=== PATIENT | female | born 1970 | race Caucasian/White ===

== ENCOUNTER 2023-05-16 16:16 | Emergency (ER) | payer MEDICARE, SELFPAY ==
[2023-05-16 16:17] VITALS: BP 179/123; PULSE 101; RESP 16; TEMP 36.7; O2SAT 98; BMI 33.2
--- NOTE | 2023-05-16 16:18 | XRR_ITS ---
PROCEDURE INFORMATION: Exam: XR Chest Exam date and time: 05/16/2023 4:44 PM Age: 52 years old Clinical indication: Pain; Angina pectoris; Additional info: Cp TECHNIQUE: Imaging protocol: Radiologic exam of the chest. Views: 1 view. COMPARISON: No relevant prior studies available. FINDINGS: Lungs: Unremarkable. No consolidation. Pleural spaces: Unremarkable. No pleural effusion. No pneumothorax. Heart/Mediastinum: Unremarkable. No cardiomegaly. Bones/joints: No acute findings. A cervicothoracic metallic plate is seen. XR/XR chest 1V portable [id number] IMPRESSION: No acute findings.
--- NOTE | 2023-05-16 16:19 | ECG_ITS ---
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 Measurements Intervals [place] Rate: 105 P: 53 GA: 172 QRS: 19 QRSD: 85 T: 10 QT: 342 QTc: 452 Interpretive Statements SINUS TACHYCARDIA SEPTAL MYOCARDIAL INFARCTION , PROBABLY OLD [40+ ms Q WAVE IN V1/V2] No previous ECG available for comparison Electronically Signed On 05-17-2023 8:45:41 KITCHEN AND BATH DESIGNER by Kin Burns M.D. [id number] f
--- NOTE | 2023-05-16 16:38 | W.ED.CHESTPA ---
HPI - Chest Pain General: Chief Complaint: Chest Pain Stated Complaint: chest pain Time Seen by Provider: 05/16/23 16:22 Source: patient Mode of arrival: ambulatory Limitations: no limitations History of Present Illness: 52-year-old female states she has been having chest pain started this afternoon states that sharp pain in the center of her chest she took nitro and had no improvement. She denies any fevers nausea. She denies any shortness of breath she denies any worsening proving factors does have a history of heart disease. Associated symptoms: Deny abdominal pain, dyspnea, fever(s), nausea or vomiting Review of Systems Const: Denies: fever(s), chills, body aches or change in appetite Eyes: Denies: blurry vision or eye discomfort ENMT: Denies: throat pain or dental pain Card: Reports: chest pain Resp: Denies: dyspnea GI: Denies: abdominal pain, nausea, vomiting or diarrhea Musc: Denies: neck pain or back pain Skin/Breast: Denies: rash Neuro: Denies: headache(s) Physical Exam Const: COMMON NORMALS: no acute distress, patient oriented x3 and healthy appearing HENMT: COMMON NORMALS: normocephalic and atraumatic HEAD & SCALP: normocephalic and atraumatic Eye: COMMON NORMALS: Equal, round and reactive pupils present and EOMs intact bilaterally PUPIL: Yes Equal, round and reactive pupils present Neck/C-Spine: COMMON NORMALS: full ROM and supple Chest: COMMONS NORMALS: normal inspection of the chest and normal palpation of entire chest wall Resp: COMMON NORMALS: normal respiratory effort, No retractions, No use of accessory muscles and clear to auscultation bilaterally AUSCULTATION: clear to auscultation bilaterally Cardio: COMMON NORMALS: regular rhythm and No murmurs present (Cardio) RATE: tachycardic RHYTHM: regular rhythm GI: COMMON NORMALS: Normal to inspection, nondistended, normoactive bowel sounds present, Soft to palpation, non-tender and no masses PALPATION: Yes Soft to palpation Extremity: COMMON NORMALS: normal to inspection and full ROM Neuro: COMMON NORMALS: patient oriented x3, moves all extremities and no focal motor deficits Psych: COMMON NORMALS: mental status grossly normal, Normal thought process present and cooperative THOUGHT PROCESS: Normal thought process present Skin: COMMON NORMALS: no rashes or lesions noted and no wounds GENERAL SKIN EXAM: no rashes or lesions noted Course Vital Signs: Vital signs: Vital Signs Temperature 98.1 F 05/16/23 16:17 Pulse Rate 95 05/16/23 20:25 Respiratory Rate 16 05/16/23 16:17 Blood Pressure 172/116 05/16/23 20:25 Pulse Oximetry 99 05/16/23 20:25 Oxygen Delivery Me thod Room Air 05/16/23 20:25 MDM - Chest Pain Medical Decision Making Patient presents here with chest pain is atypical in nature her D-dimer is negative she has no signs of PE or dissection troponins here are negative as well no signs of acute coronary syndrome she is stable for discharge she is to follow-up with her hadoop architect she is return if worsening she understands agrees to plan. Medical Records I reviewed the patient's medical records. Lab Data I reviewed the patient's lab results. 05/16/23 18:06 05/16/23 18:06 Radiology Impressions Chest X-Ray 05/16/23 16:18 IMPRESSION: No acute findings. Laboratory Results WBC 10.02 10^3/uL (3.29-11.43) 05/16/23 18:06 Corrected WBC Cancelled 05/16/23 17:05 RBC 4.97 10^6/uL (3.85-5.65) 05/16/23 18:06 Hgb 12.90 g/dL (11.27-16.99) 05/16/23 18:06 Hct 40.6 % (36-47) 05/16/23 18:06 MCV 81.7 fl (85-98) L 05/16/23 18:06 MCH 26.0 pg (27-33) L 05/16/23 18:06 MCHC 31.8 g/dL (30-55) 05/16/23 18:06 RDW 13.8 % (12.1-15.1) 05/16/23 18:06 Plt Count 269 10^3/cmm (157-399) 05/16/23 18:06 MPV 10.3 fL (7.4-10.4) 05/16/23 18:06 Gran % Cancelled 05/16/23 17:05 Neut % (Auto) 68.6 % 05/16/23 18:06 Lymph % (Auto) 23.4 % 05/16/23 18:06 [place] % (Auto) 6.1 % 05/16/23 18:06 Eos % (Auto) 1.0 % 05/16/23 18:06 Baso % (Auto) 0.6 % 05/16/23 18:06 Neut # (Auto) 6.88 10^3/uL (1.8-7.7) 05/16/23 18:06 Lymph # (Auto) 2.3 10^3/uL (0.8-4.8) 05/16/23 18:06 [place] # (Auto) 0.6 10^3/uL (0.2-0.9) 05/16/23 18:06 Eos # (Auto) 0.1 10^3/uL (0.0-0.8) 05/16/23 18:06 Baso # (Auto) 0.1 10^3/uL (0.0-0.1) 05/16/23 18:06 Absolute Gran (auto) Cancelled 05/16/23 17:05 Nucleated RBC % (auto) 0 % 05/16/23 18:06 Nucleated RBCs # 0.0 /100WBC 05/16/23 18:06 PT 13.40 SECONDS (12.1-14.9) 05/16/23 18:06 INR 0.99 (0.8-1.2) 05/16/23 18:06 D-Dimer <= 0.27 ug/mLFEU (0-0.59) 05/16/23 18:06 Sodium 143 mmol/L (136-145) 05/16/23 18:06 Potassium 4.2 mmol/L (3.5-5.1) 05/16/23 18:06 Chloride 103 mmol/L (98-107) 05/16/23 18:06 Carbon Dioxide 23 mmol/L (22-29) 05/16/23 18:06 Anion Gap 21.2 (5-19) H 05/16/23 18:06 BUN 20 mg/dL (6-20) 05/16/23 18:06 Creatinine 0.7 mg/dL (0.5-0.9) 05/16/23 18:06 GFR Calculation 88.6 mL/min (90-130) L 05/16/23 18:06 Glucose 245 mg/dL (65-115) H 05/16/23 18:06 Calculated Osmolality 307 mOsm/kg (285-295) H 05/16/23 18:06 Calcium 9.8 mg/dL (8.5-10.5) 05/16/23 18:06 Total Bilirubin 0.3 mg/dL (0.15-1.2) 05/16/23 18:06 AST 21 U/L (0-32) 05/16/23 18:06 ALT 27 U/L (0-33) 05/16/23 18:06 Alkaline Phosphatase 58 U/L (35-105) 05/16/23 18:06 Troponin T Baseline 8 ng/L (0-10) 05/16/23 18:06 Troponin T 120 Minute 8.07 ng/L (0-10) 05/16/23 19:49 Delta Troponin T 0.07 ABS# (0-10) 05/16/23 19:49 Total Protein 8.3 g/dL (6.6-8.7) 05/16/23 18:06 Albumin 4.6 g/dL (3.5-5.2) 05/16/23 18:06 Globulin 3.7 g/dL (1.3-4.6) 05/16/23 18:06 Lipase 39 U/L (13-60) 05/16/23 18:06 All radiology interpretation(s) finalized by discharge EKG Data EKG 1: I personally reviewed and interpreted this EKG as follows: EKG interpretation date: 05/16/23 EKG interpretation time: 16:21 Interpretation: sinus tach hr [address] or t wave abnormalities qrs 85 qtc 403 Discharge Plan Discharge Patient Disposition: Home Clinical Impression: Chest pain Condition: Stable Discharge Orders: Discharge ED (Routine); Ordered 05/16/23 Ordered By: Rhina Pearce Discharge Diet: Advance as tolerated Discharge Activity: Resume usual activity Patient Instructions: Chest Pain (ED) Coding Level of Care Code ED Tower Air Traffic Control Specialist for Levi Sweet
[2023-05-16 17:25] VITALS: BP 198/129; PULSE 104; O2SAT 98
--- NOTE | 2023-05-16 18:19 | ECG_ITS ---
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 Measurements Intervals [place] Rate: 93 P: 45 MD: 162 QRS: 21 QRSD: 74 T: 42 QT: 350 QTc: 436 Interpretive Statements SINUS RHYTHM NONSPECIFIC ST & T-WAVE ABNORMALITY Compared to ECG 05/16/2023 16:21:04 T-wave abnormality now present Sinus tachycardia no longer present Myocardial infarct finding no longer present Electronically Signed On 05-17-2023 8:58:48 NUTRITION INTERNSHIP by Kin Burns M.D. [id number]
[2023-05-16 18:25] LABS: Basophils # 0.1 10^3/uL (0.0-0.1); Basophils % 0.6 %; Eosinophils # 0.1 10^3/uL (0.0-0.8); Hematocrit 40.6 % (36-47); Lymphocytes # 2.3 10^3/uL (0.8-4.8); Lymphocytes % 23.4 %; Mean Corpuscular HGB Conc 31.8 g/dL (30-55); Mean Corpuscular Volume 81.7 fl (85-98); Mean Platelet Volume 10.3 fL (7.4-10.4); Monocytes # 0.6 10^3/uL (0.2-0.9); Monocytes % 6.1 %; Neutrophils # 6.88 10^3/uL (1.8-7.7); Neutrophils % 68.6 %; Nucleated Red Blood Cells % 0 %; Platelet Count 269 10^3/cmm (157-399); Red Blood Count 4.97 10^6/uL (3.85-5.65); Red Cell Distribution Width 13.8 % (12.1-15.1); White Blood Count 10.02 10^3/uL (3.29-11.43)
[2023-05-16] MEDS: morphine 4 mg/mL SDV 1 mL IVP (18:27)
[2023-05-16] MEDS: labetalol 5 mg/mL SDV 20mL 10 MG IVP ×2 (18:27→19:05)
[2023-05-16] MEDS: aspirin 81 mg Chew Tablet 324 MG PO (18:27)
[2023-05-16 18:31] LABS: INR 0.99 (0.8-1.2)
[2023-05-16 18:34] LABS: D Dimer <= 0.27 ug/mLFEU (0-0.59)
[2023-05-16 18:38] VITALS: BP 150/88; PULSE 98
[2023-05-16 18:44] LABS: Alanine Aminotransferase 27 U/L (0-33); Albumin Level 4.6 g/dL (3.5-5.2); Alkaline Phosphatase 58 U/L (35-105); Anion Gap 21.2 (5-19); Aspartate Amino Transferase 21 U/L (0-32); Blood Urea Nitrogen 20 mg/dL (6-20); Calcium 9.8 mg/dL (8.5-10.5); Carbon Dioxide 23 mmol/L (22-29); Chloride 103 mmol/L (98-107); Globulin 3.7 g/dL (1.3-4.6); Glomerular Filtration Rate 88.6 mL/min (90-130); Glucose 245 mg/dL (65-115); Lipase 39 U/L (13-60); Osmolality Calculated 307 mOsm/kg (285-295); Potassium 4.2 mmol/L (3.5-5.1); Sodium 143 mmol/L (136-145); Total Bilirubin 0.3 mg/dL (0.15-1.2); Total Protein 8.3 g/dL (6.6-8.7)
[2023-05-16 18:46] LABS: Troponin(5th) Baseline 8 ng/L (0-10)
[2023-05-16 20:25] VITALS: BP 172/116; PULSE 95; O2SAT 99
[2023-05-16 20:30] LABS: Troponin 5 2HR 8.07 ng/L (0-10); Troponin 5 2HR Delta 0.07 ABS# (0-10)
[2023-05-16] MEDS: HYDROcodone-acetaminophen 5-325 mg Tablet 1 TAB PO (20:40)
== END 2023-05-16 20:47 | disposition home or self-care (01) ==
PROVIDERS: Emergency Provider Emergency Medicine
DX: R07.89 Other chest pain (principal); R00.0 Tachycardia, unspecified
CPT/HCPCS: 71045; 80053; 83690; 84484; 85025; 85378; 85610; 93005; 96374; 96375; 96376; 99285; J2270; J3490

== ENCOUNTER 2024-07-12 13:43 | Emergency (ER) | payer MEDICARE, SELFPAY ==
--- NOTE | 2024-07-12 13:45 | ECG_ITS ---
[facility] Date: 2024-07-12 Pat Name: Kaela Toledo Department: Room: Gender: Female Sales Executive: : 1970 Requested By: Rhina Pearce Order Number: [id number] Bryce MD: Iam Perez M.D. Measurements Intervals [place] Rate: 92 P: 33 [place]: 176 QRS: -1 QRSD: 88 T: 70 QT: 359 QTc: 444 Interpretive Statements SINUS RHYTHM LOW QRS VOLTAGE IN PRECORDIAL LEADS [QRS DEFLECTION < 1.0 mV IN CHEST LEADS] NONSPECIFIC T-WAVE ABNORMALITY Compared to ECG 05/16/2023 18:28:19 Low QRS voltage now present T-wave abnormality still present Electronically Signed On 07-15-2024 22:06:35 FOREST FIRE MANAGEMENT OFFICER by Iam Perez M.D. [id number] [id number]
--- NOTE | 2024-07-12 13:45 | XRR_ITS ---
PROCEDURE INFORMATION: Exam: XR Chest Exam date and time: 07/12/2024 2:11 PM Age: 53 years old Clinical indication: Shortness of breath; Additional info: SOB TECHNIQUE: Imaging protocol: Radiologic exam of the chest. Views: 1 view. COMPARISON: CR XR chest 1V portable [id number] 05/16/2023 4:44 PM FINDINGS: Tubes, catheters and devices: There is a dual electrode pacemaker now present projecting over the right atrium and right ventricle. There is electronic monitoring device left anterior chest wall. Lungs: Lung volumes are somewhat decreased. There are some indistinct increased retrocardiac markings difficult to further assess in this single-view chest in inconclusive for patchy left lower lobe infiltrate. Remaining lung kwok are aerated and clear. Pleural spaces: Unremarkable. No pleural effusion. No pneumothorax. Heart/Mediastinum: Unremarkable. No cardiomegaly. Bones/joints: No acute bony abnormalities detected. XR/XR chest 1V portable [id number] IMPRESSION: Findings thickened closer for patchy left lower lobe infiltrate which could be clarified on two-view chest exam.
[2024-07-12 14:00] VITALS: BP 151/85; PULSE 95; RESP 15; TEMP 36.8; O2SAT 97; BMI 34.2
[2024-07-12 14:29] LABS: Basophils # 0.1 10^3/uL (0.0-0.1); Basophils % 0.6 %; Eosinophils # 0.3 10^3/uL (0.0-0.8); Eosinophils % 2.8 %; Hematocrit 35.7 % (36-47); Lymphocytes # 2.5 10^3/uL (0.8-4.8); Lymphocytes % 23.2 %; Mean Corpuscular HGB Conc 31.1 g/dL (30-55); Mean Corpuscular Hemoglobin 24.7 pg (27-33); Mean Corpuscular Volume 79.5 fl (85-98); Mean Platelet Volume 9.8 fL (7.4-10.4); Monocytes # 0.8 10^3/uL (0.2-0.9); Monocytes % 7.2 %; Neutrophils # 7.16 10^3/uL (1.8-7.7); Neutrophils % 65.8 %; Nucleated Red Blood Cells % 0 %; Platelet Count 266 10^3/cmm (157-399); Red Blood Count 4.49 10^6/uL (3.85-5.65); Red Cell Distribution Width 15.2 % (12.1-15.1); White Blood Count 10.87 10^3/uL (3.29-11.43)
[2024-07-12 14:42] LABS: INR 0.96 (0.8-1.2)
[2024-07-12 14:47] LABS: Troponin(5th) Baseline 14 ng/L (0-10)
[2024-07-12 15:09] LABS: Alanine Aminotransferase 22 U/L (0-33); Albumin Level 4.4 g/dL (3.5-5.2); Alkaline Phosphatase 56 U/L (35-105); Anion Gap 18.9 (5-19); Aspartate Amino Transferase 20 U/L (0-32); Blood Urea Nitrogen 16 mg/dL (6-20); Calcium 9.4 mg/dL (8.5-10.5); Carbon Dioxide 23 mmol/L (22-29); Chloride 101 mmol/L (98-107); Creatinine Clr Calc Pharmacy 107.4508; Globulin 3.2 g/dL (1.3-4.6); Glomerular Filtration Rate 75.6 mL/min (90-130); Glucose 242 mg/dL (65-115); NT Pro B Type Natriuretic Pept 70 pg/mL (0-125); Osmolality Calculated 297 mOsm/kg (285-295); Potassium 3.9 mmol/L (3.5-5.1); Sodium 139 mmol/L (136-145); Total Bilirubin 0.2 mg/dL (0.15-1.2); Total Protein 7.6 g/dL (6.6-8.7)
--- NOTE | 2024-07-12 15:45 | ECG_ITS ---
[facility] Date: 2024-[facility]-12 Pat Name: Kaela Toledo Department: Room: Gender: Female Capsule Inspector: : 1970 Requested By: Rhina Pearce Order Number: [id number] Bryce MD: Iam Perez M.D. Measurements Intervals [place] Rate: 89 P: 42 [place]: 177 QRS: 19 QRSD: 88 T: 65 QT: 377 QTc: 460 Interpretive Statements SINUS RHYTHM NONSPECIFIC T-WAVE ABNORMALITY Compared to ECG 07/12/2024 13:50:51 No significant changes Electronically Signed On 07-15-2024 22:22:58 COMB WINDER by Iam Perez M.D. [id number]
--- NOTE | 2024-07-12 16:19 | XRR_ITS ---
PROCEDURE INFORMATION: Exam: XR Chest Exam date and time: 07/12/2024 4:23 PM Age: 53 years old Clinical indication: Abnormal findings; Abnormal radiologic exam of lung or chest; Prior surgery; Surgery date: 6+ months; Surgery type: Pacer; F/u to prev xray; Additional info: Cp TECHNIQUE: Imaging protocol: Radiologic exam of the chest. Views: 2 views. COMPARISON: CR XR chest 1V portable [id number] 07/12/2024 2:11 PM FINDINGS: Lungs: Unremarkable. No infiltrates or overt CHF. Pleural spaces: Unremarkable. No pleural effusion. No pneumothorax. Heart/Mediastinum: Cardiac silhouette is not enlarged. There is a dual electrode pacemaker whose tips project within the right atrium and right ventricle. Electronic monitoring device projecting over the left chest wall unchanged. Bones/joints: Unremarkable for age. XR/XR chest 2V* [id number] IMPRESSION: Lungs clear. No active disease.
--- NOTE | 2024-07-12 16:31 | W.ED.CHESTPA ---
HPI - Chest Pain General: Chief Complaint: Chest Pain Stated Complaint: chest pain/SOB Time Seen by Provider: 07/12/24 16:14 Source: patient Mode of arrival: ambulatory Limitations: no limitations History of Present Illness: 53-year-old female who states she started having chest pain an hour ago she states the pain has been a sharp pain across her chest. She denies any nausea she denies any shortness of breath. She denies any worse improving factors does have a history of heart problems. Rates the pain a 4 out of 10 currently. Associated symptoms: Deny abdominal pain, dyspnea, fever(s), nausea or vomiting Related Data Home Medications Medication Instructions Recorded Confirmed amlodipine 5 mg tablet 5 mg PO DAILY 07/12/24 07/12/24 atorvastatin 40 mg tablet 40 mg PO QPM 07/12/24 07/12/24 clopidogrel 75 mg tablet 75 mg PO DAILY 07/12/24 07/12/24 gabapentin 300 mg capsule 600 mg PO TID 07/12/24 07/12/24 insulin degludec 100 unit/mL (3 70 unit SUBCUT DAILY 07/12/24 07/12/24 mL) subcutaneous pen (Tresiba FlexTouch U-100 insulin) insulin regular human 100 unit/mL See Rx Instructions .Route .COMPLEX 07/12/24 07/12/24 (3 mL) subcutaneous pen (Novolin R FlexPen) isosorbide mononitrate 60 mg 60 mg PO DAILY 07/12/24 07/12/24 tablet,extended release 24 hr metoprolol succinate 50 mg 50 mg PO DAILY 07/12/24 07/12/24 tablet,extended release 24 hr oxycodone-acetaminophen 7.5 mg-325 1 tab PO TID 07/12/24 07/12/24 mg tablet pantoprazole 40 mg tablet,delayed 40 mg PO DAILY 07/12/24 07/12/24 release pregabalin 200 mg capsule 200 mg PO QID 07/12/24 07/12/24 semaglutide 1 mg/dose (4 mg/3 mL) 1 mg SUBCUT Q7D 07/12/24 07/12/24 subcutaneous pen injector (Ozempic) sucralfate 100 mg/mL oral 10 ml PO QID 07/12/24 07/12/24 suspension tizanidine 4 mg tablet 4 mg PO TID PRN muscle spasms 07/12/24 07/12/24 Allergies Allergy/AdvReac Type Severity Reaction Status Date / Time Barbiturates Allergy ALGY-Hives Verified 05/16/23 16:29 chlorpromazine Allergy ALGY-Hives Verified 05/16/23 16:29 [From Thorazine] diphenhydramine Allergy ALGY-Hives Verified 05/16/23 16:29 haloperidol [From Haldol] Allergy ALGY-Hives Verified 05/16/23 16:29 ketorolac Allergy ALGY-Hives Verified 05/16/23 16:29 latex Allergy ALGY-Hives Verified 05/16/23 16:29 ondansetron [From Zofran] Allergy ALGY-Hives Verified 05/16/23 16:29 Penicillins Allergy ALGY-Hives Verified 05/16/23 16:29 Sulfa (Sulfonamide Allergy ALGY-Hives Verified 05/16/23 16:29 Antibiotics) mycins Allergy ALGY-Hives Uncoded 05/16/23 16:29 Review of Systems Const: Denies: fever(s), chills, body aches or change in appetite ENMT: Denies: throat pain or dental pain Card: Reports: chest pain Resp: Denies: dyspnea GI: Denies: abdominal pain, nausea, vomiting or diarrhea Musc: Denies: neck pain or back pain Skin/Breast: Denies: rash Neuro: Denies: headache(s) Physical Exam Const: COMMON NORMALS: no acute distress, patient oriented x3 and healthy appearing HENMT: COMMON NORMALS: normocephalic and atraumatic HEAD & SCALP: normocephalic and atraumatic Eye: COMMON NORMALS: Equal, round and reactive pupils present and EOMs intact bilaterally PUPIL: Yes Equal, round and reactive pupils present Neck/C-Spine: COMMON NORMALS: full ROM and supple Chest: COMMONS NORMALS: normal inspection of the chest and normal palpation of entire chest wall Resp: COMMON NORMALS: normal respiratory effort, No retractions, No use of accessory muscles and clear to auscultation bilaterally AUSCULTATION: clear to auscultation bilaterally Cardio: COMMON NORMALS: regular rate, regular rhythm and No murmurs present (Cardio) RATE: regular rate RHYTHM: regular rhythm GI: COMMON NORMALS: Normal to inspection, nondistended, normoactive bowel sounds present, Soft to palpation, non-tender and no masses PALPATION: Yes Soft to palpation Extremity: COMMON NORMALS: normal to inspection and full ROM Neuro: COMMON NORMALS: patient oriented x3, moves all extremities and no focal motor deficits Psych: COMMON NORMALS: mental status grossly normal, Normal thought process present and cooperative THOUGHT PROCESS: Normal thought process present Skin: COMMON NORMALS: no rashes or lesions noted and no wounds GENERAL SKIN EXAM: no rashes or lesions noted Course Vital Signs: Vital signs: Vital Signs Temperature 98.2 F 07/12/24 14:00 Pulse Rate 95 07/12/24 14:00 Respiratory Rate 16 07/12/24 17:03 Blood Pressure 146/88 07/12/24 17:00 Pulse Oximetry 95 07/12/24 17:03 Oxygen Delivery Me thod Room Air 07/12/24 14:00 MDM - Chest Pain Medical Decision Making Patient presents for chest pain is atypical in nature initial repeat troponins here are negative she is has no signs of pulmonary embolism or aortic dissection she is follow-up with PCP return if worsening she understands agrees to plan Medical Records I reviewed the patient's medical records. Lab Data I reviewed the patient's lab results. 07/12/24 14:23 07/12/24 14:23 Radiology Impressions Chest X-Ray 07/12/24 16:19 IMPRESSION: Lungs clear. No active disease. Laboratory Results WBC 10.87 10^3/uL (3.29-11.43) 07/12/24 14:23 RBC 4.49 10^6/uL (3.85-5.65) 07/12/24 14:23 Hgb 11.10 g/dL (11.27-16.99) L 07/12/24 14:23 Hct 35.7 % (36-47) L 07/12/24 14:23 MCV 79.5 fl (85-98) L 07/12/24 14:23 MCH 24.7 pg (27-33) L 07/12/24 14:23 MCHC 31.1 g/dL (30-55) 07/12/24 14:23 RDW 15.2 % (12.1-15.1) H 07/12/24 14:23 Plt Count 266 10^3/cmm (157-399) 07/12/24 14:23 MPV 9.8 fL (7.4-10.4) 07/12/24 14:23 Neut % (Auto) 65.8 % 07/12/24 14:23 Lymph % (Auto) 23.2 % 07/12/24 14:23 [place] % (Auto) 7.2 % 07/12/24 14:23 Eos % (Auto) 2.8 % 07/12/24 14:23 Baso % (Auto) 0.6 % 07/12/24 14:23 Neut # (Auto) 7.16 10^3/uL (1.8-7.7) 07/12/24 14:23 Lymph # (Auto) 2.5 10^3/uL (0.8-4.8) 07/12/24 14:23 [place] # (Auto) 0.8 10^3/uL (0.2-0.9) 07/12/24 14:23 Eos # (Auto) 0.3 10^3/uL (0.0-0.8) 07/12/24 14:23 Baso # (Auto) 0.1 10^3/uL (0.0-0.1) 07/12/24 14:23 Nucleated RBC % (auto) 0 % 07/12/24 14:23 Nucleated RBCs # 0.0 /100WBC 07/12/24 14:23 PT 13.50 SECONDS (12.1-14.9) 07/12/24 14:23 INR 0.96 (0.8-1.2) 07/12/24 14:23 Sodium 139 mmol/L (136-145) 07/12/24 14:23 Potassium 3.9 mmol/L (3.5-5.1) 07/12/24 14:23 Chloride 101 mmol/L (98-107) 07/12/24 14:23 Carbon Dioxide 23 mmol/L (22-29) 07/12/24 14:23 Anion Gap 18.9 (5-19) 07/12/24 14:23 BUN 16 mg/dL (6-20) 07/12/24 14:23 Creatinine 0.8 mg/dL (0.5-0.9) 07/12/24 14:23 GFR Calculation 75.6 mL/min (90-130) L 07/12/24 14:23 Glucose 242 mg/dL (65-115) H 07/12/24 14:23 Calculated Osmolality 297 mOsm/kg (285-295) H 07/12/24 14:23 Calcium 9.4 mg/dL (8.5-10.5) 07/12/24 14:23 Total Bilirubin 0.2 mg/dL (0.15-1.2) 07/12/24 14:23 AST 20 U/L (0-32) 07/12/24 14:23 ALT 22 U/L (0-33) 07/12/24 14:23 Alkaline Phosphatase 56 U/L (35-105) 07/12/24 14:23 Troponin T Baseline 14 ng/L (0-10) H 07/12/24 14:23 Troponin T 120 Minute 14.12 ng/L (0-10) H 07/12/24 16:24 Delta Troponin T 0.12 ABS# (0-10) 07/12/24 16:24 NT-Pro-B Natriuret Pep 70 pg/mL (0-125) 07/12/24 14:23 Total Protein 7.6 g/dL (6.6-8.7) 07/12/24 14:23 Albumin 4.4 g/dL (3.5-5.2) 07/12/24 14:23 Globulin 3.2 g/dL (1.3-4.6) 07/12/24 14:23 All radiology interpretation(s) finalized by discharge EKG Data EKG 1: I personally reviewed and interpreted this EKG as follows: EKG interpretation date: 07/12/24 EKG interpretation time: 16:51 Interpretation: nsr hr [address] elevation qrs 88 qtc 424 Discharge Plan Discharge Patient Disposition: Home Clinical Impression: Chest pain Condition: Stable Prescriptions: No Action atorvastatin 40 mg tablet 40 mg PO QPM tizanidine 4 mg tablet 4 mg PO TID PRN (Reason: muscle spasms) metoprolol succinate 50 mg tablet extended release 24 hr 50 mg PO DAILY sucralfate 100 mg/mL suspension 10 ml PO QID clopidogrel 75 mg tablet 75 mg PO DAILY amlodipine 5 mg tablet 5 mg PO DAILY isosorbide mononitrate 60 mg tablet extended release 24 hr 60 mg PO DAILY pantoprazole 40 mg tablet,delayed release (DR/EC) 40 mg PO DAILY gabapentin 300 mg capsule 600 mg PO TID oxycodone-acetaminophen 7.5-325 mg tablet 1 tab PO TID Novolin R FlexPen 100 unit/mL (3 mL) insulin pen See Rx Instructions .ROUTE .COMPLEX Rx Instructions: Inject subcutaneously per sliding scale tid. pregabalin 200 mg capsule 200 mg PO QID insulin degludec [Tresiba FlexTouch U-100] 100 unit/mL (3 mL) insulin pen 70 unit SUBCUT DAILY Ozempic 1 mg/dose (4 mg/3 mL) pen injector 1 mg SUBCUT Q7D Discharge Orders: Discharge ED (Routine); Ordered 07/12/24 Ordered By: Rhina Pearce Discharge Diet: Advance as tolerated Discharge Activity: Resume usual activity Patient Instructions: Chest Pain (ED) Coding Level of Care Code ED Supervisor Nutritional Yeast for Levi Sweet
[2024-07-12 17:00] VITALS: BP 146/88; O2SAT 96
[2024-07-12 17:03] VITALS: RESP 16; O2SAT 95
[2024-07-12 17:03] LABS: Troponin 5 2HR 14.12 ng/L (0-10); Troponin 5 2HR Delta 0.12 ABS# (0-10)
[2024-07-12] MEDS: morphine 4 mg/mL SDV 1 mL IVP (17:03)
[2024-07-12 17:52] VITALS: BP 139/93; PULSE 90; O2SAT 97
== END 2024-07-12 17:54 | disposition home or self-care (01) ==
PROVIDERS: Emergency Provider Emergency Medicine
DX: R07.9 Chest pain, unspecified (principal); Z79.02 Long term (current) use of antithrombotics/antiplatelets; Z79.4 Long term (current) use of insulin
CPT/HCPCS: 36415; 71045; 71046; 80053; 83880; 84484; 85025; 85610; 93005; 96374; 99285; J2270

== ENCOUNTER 2024-11-12 15:32 | Emergency (ER) | payer MEDICARE, SELFPAY ==
[2024-11-12 15:36] VITALS: BP 165/80; PULSE 88; TEMP 36.8; O2SAT 98; BMI 34.0
--- NOTE | 2024-11-12 15:37 | ECG_ITS ---
[facility] Date: 2024-[facility]-12 Pat Name: Kaela Toledo Department: Room: Gender: Female Pill Coater: : 1970 Requested By: Clary Harris Order Number: [id number] Reading MD: MINISTERIO LYNN Measurements Intervals [place] Rate: 89 P: 32 MD: 162 QRS: 15 QRSD: 81 T: 63 QT: 366 QTc: 448 Interpretive Statements SINUS RHYTHM LOW QRS VOLTAGE IN PRECORDIAL LEADS [QRS DEFLECTION < 1.0 mV IN CHEST LEADS] NONSPECIFIC T-WAVE ABNORMALITY INTERPRETATION BASED ON A DEFAULT AGE OF 40 YEARS Compared to ECG 07/12/2024 16:51:16 Low QRS voltage now present T-wave abnormality still present Electronically Signed On 11-13-2024 23:49:03 CDT by MINISTERIO LYNN [id number]
--- NOTE | 2024-11-12 15:44 | XRR_ITS ---
PROCEDURE INFORMATION: Exam: XR Chest Exam date and time: 11/12/2024 4:32 PM Age: 54 years old Clinical indication: Pain; Chest pressure; Additional info: Chest pain TECHNIQUE: Imaging protocol: Radiologic exam of the chest. Views: 1 view. COMPARISON: CR XR chest 2V* [id number] 07/12/2024 4:23 PM FINDINGS: Lungs: No focal consolidation. Pleural spaces: No evidence of pneumothorax. No evidence of pleural effusion. Heart/Mediastinum: Cardiomediastinal silhouette is within normal limits. Left subclavian approach dual-chamber pacemaker. Bones/joints: No evidence of acute osseous abnormality. Cervical fusion hardware noted. XR/XR chest 1V portable [id number] IMPRESSION: 1. No acute cardiopulmonary abnormality.
[2024-11-12 16:04] LABS: Basophils # 0.1 10^3/uL (0.0-0.1); Basophils % 0.7 %; Eosinophils # 0.5 10^3/uL (0.0-0.8); Eosinophils % 4.9 %; Hematocrit 38.8 % (36-47); Lymphocytes # 1.5 10^3/uL (0.8-4.8); Lymphocytes % 15.9 %; Mean Corpuscular HGB Conc 31.4 g/dL (30-55); Mean Corpuscular Hemoglobin 26.1 pg (27-33); Mean Corpuscular Volume 83.1 fl (85-98); Mean Platelet Volume 10.4 fL (7.4-10.4); Monocytes # 0.6 10^3/uL (0.2-0.9); Monocytes % 6.3 %; Neutrophils # 6.84 10^3/uL (1.8-7.7); Neutrophils % 71.9 %; Nucleated Red Blood Cells % 0 %; Platelet Count 158 10^3/cmm (157-399); Red Blood Count 4.67 10^6/uL (3.85-5.65); Red Cell Distribution Width 14.8 % (12.1-15.1); White Blood Count 9.52 10^3/uL (3.29-11.43)
[2024-11-12 16:25] LABS: Alanine Aminotransferase 21 U/L (0-33); Albumin Level 4.4 g/dL (3.5-5.2); Alkaline Phosphatase 60 U/L (35-105); Aspartate Amino Transferase 18 U/L (0-32); Blood Urea Nitrogen 22 mg/dL (6-20); Calcium 9.8 mg/dL (8.5-10.5); Carbon Dioxide 22 mmol/L (22-29); Creatinine Clr Calc Pharmacy 105.7724; Globulin 3.6 g/dL (1.3-4.6); Glomerular Filtration Rate 75.3 mL/min (90-130); Glucose 191 mg/dL (65-115); Total Bilirubin 0.3 mg/dL (0.15-1.2)
[2024-11-12 16:31] LABS: Troponin(5th) Baseline 9 ng/L (0-10)
[2024-11-12 16:34] LABS: Anion Gap 17.3 (5-19); Chloride 102 mmol/L (98-107); Osmolality Calculated 292 mOsm/kg (285-295); Potassium 4.3 mmol/L (3.5-5.1); Sodium 137 mmol/L (136-145)
--- NOTE | 2024-11-12 17:13 | CTR_ITS ---
PROCEDURE INFORMATION: Exam: CTA Chest With Contrast Exam date and time: 11/12/2024 5:39 PM Age: 54 years old Clinical indication: Pain; Chest pressure; Prior surgery; Surgery date: 6+ months; Surgery type: Pacer, cervical fusion, gb; Additional info: Chest pain TECHNIQUE: Imaging protocol: Computed tomographic angiography of the chest with contrast. Exam focused on the arteries. 3D rendering (Not supervised by radiologist): MIP and/or 3D reconstructed images were created by the technologist. Radiation optimization: All CT scans at this facility use at least one of these dose optimization techniques: automated exposure control; mA and/or kV adjustment per patient size (includes targeted exams where dose is matched to clinical indication); or iterative reconstruction. Contrast material: OMNIPAQUE 350; Contrast volume: 64 ml; Contrast route: INTRAVENOUS (IV); COMPARISON: CR (CHEST, ) 11/12/2024 4:32 PM RADIATION DOSE METRICS: Total DLP (mGy-cm): 482.31 FINDINGS: Pulmonary arteries: No evidence of pulmonary thromboembolism. Aorta: No evidence of aneurysmal dilatation or dissection of the thoracic aorta. Thyroid: Grossly unremarkable. Lungs: No focal consolidation. No evidence of pneumonia. Multiple small pulmonary nodules in both lungs. For example, there is a 5 mm right lower lobe pulmonary nodule (image 311 of series 7). Pleural spaces: No evidence of pleural effusion. No pneumothorax. Heart: No cardiomegaly. No pericardial effusion. Mediastinal space: No evidence of mediastinal mass, fluid collection or hematoma. Left subclavian approach dual-chamber pacemaker. Lymph nodes: No mediastinal or hilar adenopathy. Bones/joints: No evidence of acute fracture or aggressive osseous lesion. Soft tissues: No evidence of fluid collection or hematoma in the superficial soft tissues. Other findings: No evidence of acute abnormality in the upper abdomen. Mild nodularity liver contour raising the question of hepatic cirrhosis. CT/CT angio chest PE protcl [id number] IMPRESSION: 1. No evidence of PE or acute aortic abnormality. 2. Multiple small pulmonary nodules in both lungs raising the question of metastatic disease or a granulomatous process. Consider oncology evaluation to exclude primary neoplasm. The findings were verbally communicated by telephone with Dr. KUMAR at 6:02 PM CDT on 11/12/2024.
[2024-11-12] MEDS: iohexol 350 mg/mL 500 mL Btl (per mL) IV (17:48)
[2024-11-12 18:00] VITALS: BP 174/96; PULSE 101; RESP 14; O2SAT 100
[2024-11-12] MEDS: morphine 4 mg/mL SDV 1 mL IVP (18:03)
--- NOTE | 2024-11-12 18:03 | CTR_ITS ---
PROCEDURE INFORMATION: Exam: CT Abdomen And Pelvis Without Contrast Exam date and time: 11/12/2024 6:20 PM Age: 54 years old Clinical indication: Other: Concern for metastatic disease based on chest CT; Prior surgery; Surgery date: 6+ months; Surgery type: Pacer. Coronary stents; Concern for metastatic disease due to multiple nodules noted on chest cta. ; Additional info: Malignancy workup TECHNIQUE: Imaging protocol: Computed tomography of the abdomen and pelvis without contrast. Radiation optimization: All CT scans at this facility use at least one of these dose optimization techniques: automated exposure control; mA and/or kV adjustment per patient size (includes targeted exams where dose is matched to clinical indication); or iterative reconstruction. COMPARISON: CT angio chest PE protcl [id number] 11/12/2024 5:39 PM RADIATION DOSE METRICS: Total DLP (mGy-cm): 1096.76 FINDINGS: Diaphragm: No evidence of diaphragmatic defect. Liver: No evidence of focal hepatic lesion within limitation of a noncontrast exam. Mild nodularity of the liver contour raising the question of hepatic cirrhosis. Gallbladder and biliary ducts: Status post cholecystectomy. Mild central intrahepatic biliary dilatation. There is mild extrahepatic biliary dilatation, frequently seen post cholecystectomy. CBD measures up to 12 mm. No evidence of intraductal stone. Pancreas: Grossly unremarkable. Spleen: Grossly unremarkable. Adrenal glands: Grossly unremarkable. Kidneys and ureters: Mentally malrotated right kidney. No gross renal parenchymal abnormality on the left. No evidence of hydronephrosis or ureteral stone. Excreted contrast noted in the renal collecting systems. Stomach and bowel: Colonic diverticulosis without evidence of acute diverticulitis. No bowel obstruction or perienteric inflammatory changes. There is wall thickening of the sigmoid colon with very mild haziness in the left hemipelvis, possibly secondary to a recent bout of diverticulitis. Consider correlation with follow-up colonoscopy to exclude an underlying mucosal lesion. Appendix: Normal appendix. Intraperitoneal space: No evidence of free air or fluid collection. Vasculature: No evidence of aneurysmal dilitation of abdominal aorta. Lymph nodes: No evidence of adenopathy. Urinary bladder: Grossly unremarkable. Reproductive: Grossly unremarkable. Bones/joints: No evidence of acute fracture or aggresive osseous lesion. Moderate multilevel spondylosis of the lumbar spine with facet arthrosis and osteophytosis. Moderate-severe L2-L3 central stenosis. Consider correlation with follow-up outpatient MRI to evaluate for neural impingement. Soft tissues: No evidence of fluid collection or hematoma in the superficial soft tissues. CT/CT abdomen pelvis wo con [id number] IMPRESSION: 1. No evidence of neoplasm in the abdomen or pelvis within limitations of a noncontrast exam. 2. Follow-up CT of the chest in 3 months is recommended to assess for stability of the pulmonary nodules. 3. Wall thickening of the sigmoid colon with very mild haziness in the left hemipelvis, possibly secondary to a recent bout of diverticulitis. Consider correlation with follow-up colonoscopy to exclude an underlying mucosal lesion. References: Doris Cornejo, et al. Guidelines for Management of Incidental Pulmonary Nodules Detected on CT Images: From the Fleischner Society 2017. Radiology. 2017;284(1):228-243.
[2024-11-12 18:21] LABS: Troponin 5 2HR 9.27 ng/L (0-10); Troponin 5 2HR Delta 0.27 ABS# (0-10)
--- NOTE | 2024-11-12 19:10 | W.ED.CHESTPA ---
HPI - Chest Pain General: Chief Complaint: Chest Pain Stated Complaint: chest pain Time Seen by Provider: 11/12/24 16:19 History of Present Illness: Patient is a female with significant cardiac history including dual chamber pacemaker, three cardiac stents, and history of PSVT s/p ablation who presents with chest pain that began around 3:00 PM today while traveling from [place]. She describes the pain as constant, sharp/stabbing, located in the left chest area. Pain is not altered by position or activity. She reports prior shortness of breath that has improved. She has taken her prescribed nitroglycerin and baby aspirin without relief. The pain is similar to previous episodes that have led to hospital admissions, though patient denies any prior [place]. She reports previous ED visits for similar pain with negative workups including normal troponins and cardiac ultrasound. Last cardiac catheterization was in February 2024 at [facility], where she received two additional stents and had cleaning of a previous stent. Related Data Home Medications ?Medication ?Instructions ?Recorded ?Confirmed amlodipine 5 mg tablet 5 mg PO DAILY 07/12/24 07/12/24 atorvastatin 40 mg tablet 40 mg PO QPM 07/12/24 07/12/24 clopidogrel 75 mg tablet 75 mg PO DAILY 07/12/24 07/12/24 gabapentin 300 mg capsule 600 mg PO TID 07/12/24 07/12/24 insulin degludec 100 unit/mL (3 70 unit SUBCUT DAILY 07/12/24 07/12/24 mL) subcutaneous pen (Tresiba FlexTouch U-100 insulin) insulin regular human 100 unit/mL See Rx Instructions .Route .COMPLEX 07/12/24 07/12/24 (3 mL) subcutaneous pen (Novolin R FlexPen) isosorbide mononitrate 60 mg 60 mg PO DAILY 07/12/24 07/12/24 tablet,extended release 24 hr metoprolol succinate 50 mg 50 mg PO DAILY 07/12/24 07/12/24 tablet,extended release 24 hr oxycodone-acetaminophen 7.5 mg-325 1 tab PO TID 07/12/24 07/12/24 mg tablet pantoprazole 40 mg tablet,delayed 40 mg PO DAILY 07/12/24 07/12/24 release pregabalin 200 mg capsule 200 mg PO QID 07/12/24 07/12/24 semaglutide 1 mg/dose (4 mg/3 mL) 1 mg SUBCUT Q7D 07/12/24 07/12/24 subcutaneous pen injector (Ozempic) sucralfate 100 mg/mL oral 10 ml PO QID 07/12/24 07/12/24 suspension tizanidine 4 mg tablet 4 mg PO TID PRN muscle spasms 07/12/24 07/12/24 Allergies Allergy/AdvReac Type Severity Reaction Status Date / Time Barbiturates Allergy ALGY-Hives Verified 11/12/24 15:46 chlorpromazine (From Allergy ALGY-Hives Verified 11/12/24 15:46 Thorazine) diphenhydramine Allergy ALGY-Hives Verified 11/12/24 15:46 haloperidol (From Haldol) Allergy ALGY-Hives Verified 11/12/24 15:46 ketorolac Allergy ALGY-Hives Verified 11/12/24 15:46 latex Allergy ALGY-Hives Verified 11/12/24 15:46 metoclopramide (From Reglan) Allergy Unknown Verified 11/12/24 15:46 ondansetron (From Zofran) Allergy ALGY-Hives Verified 11/12/24 15:46 orphenadrine (From Norflex) Allergy Unknown Verified 11/12/24 15:47 Penicillins Allergy ALGY-Hives Verified 11/12/24 15:46 Sulfa (Sulfonamide Allergy ALGY-Hives Verified 11/12/24 15:46 Antibiotics) mycins Allergy ALGY-Hives Uncoded 11/12/24 15:46 Course Vital Signs: Vital signs: Vital Signs Temperature 98.2 F 11/12/24 15:36 Pulse Rate 101 H 11/12/24 18:00 Respiratory Rate 14 11/12/24 18:00 Blood Pressure 174/96 11/12/24 18:00 Pulse Oximetry 100 11/12/24 18:00 Oxygen Delivery Me thod Room Air 11/12/24 18:00 MDM - Chest Pain Medical Decision Making ROS: Constitutional: Denies sweats (though in menopause) Cardiovascular: Positive for chest pain, denies palpitations Respiratory: Reports earlier shortness of breath, now improved Gastrointestinal: Denies nausea or vomiting All other systems reviewed and negative MEDICATIONS AND ALLERGIES: Medications: - Nitroglycerin - Baby aspirin - Oxycodone every 8 hours Allergies: None reported PAST HISTORICAL DATA: PMH: - Coronary artery disease with three stents - PSVT status post ablation - Dual chamber pacemaker - Type 2 diabetes - Chronic pain - Menopause PSH: - Quadruple spinal fusion - Cardiac ablation - Multiple cardiac catheterizations Social History: - Non-smoker VITAL SIGNS: Heart Rate: 89 bpm PHYSICAL EXAM: General: Somewhat obese, in no acute distress HEENT: Head normocephalic and atraumatic. Mucous membranes moist Neck: Supple Respiratory: Clear breath sounds bilaterally, no increased work of breathing Cardiovascular: Regular rate and rhythm, equal pulses in all four extremities Abdomen: Soft, non-distended, no rebound or guarding Neuro: Cranial nerves grossly intact, no focal motor or sensory deficits noted INITIAL IMPRESSION AND PLAN: Given the history and presentation, the primary working diagnosis is chest pain with complex cardiac history requiring rule-out of acute coronary syndrome and pulmonary embolism. Additional considerations include musculoskeletal pain and anxiety. Plan: 1. CBC, CMP 2. Serial troponins 3. EKG 4. CXR 5. CTA chest to rule out PE 6. Pain control with morphine 4mg IV 7. Zofran 4mg IV for potential nausea TEST INTERPRETATIONS: Labs: - CBC: WBC 9.5, Hgb 12.2, Hct 38 - Chemistry: BUN 22, Cr 0.8, Glucose 191 - Initial Troponin: 9 (normal <10) - Repeat Troponin: 9.27 (no significant change) EKG: Sinus rhythm at 89 bpm, no ischemic ST elevation or depression, QTc 448ms, normal axis Imaging: - CXR: Negative for acute pathology - CTA Chest: No PE or acute aortic abnormality. Multiple small pulmonary nodules in both lungs concerning for possible metastatic disease or granulomatous process - CT Abdomen/Pelvis (non-contrast): No evidence of neoplastic disease, limited by lack of contrast PROCEDURES: None performed CONSIDERED BUT NOT PERFORMED: Cardiac catheterization considered but not performed due to recent negative catheterization in February 2024 and negative cardiac workup FINAL IMPRESSION: Based on all the above, my clinical impression is most compatible with non-cardiac chest pain with incidental finding of pulmonary nodules requiring follow-up. The clinical picture is not currently suggestive of acute coronary syndrome, pulmonary embolism, or acute aortic pathology. Although other conditions were also considered, they were deemed unlikely based on the clinical information available. CLINICAL DISPOSITION: The patient's current condition is stable in my estimation and the most appropriate and indicated disposition at this time is discharge home with close follow-up. Rationale for Discharge: Patient is safe for discharge given negative cardiac biomarkers, normal EKG, negative CTA for PE, and stable vital signs. While pulmonary nodules were discovered, they are not acute and can be managed as an outpatient. CASE SUMMARY: 67-year-old female with complex cardiac history including CAD with stents, pacemaker, and prior PSVT presented with acute onset left-sided chest pain. Workup included normal cardiac enzymes, EKG without acute changes, and CTA chest negative for PE but revealing incidental pulmonary nodules. Patient's chest pain improved with treatment, and she was discharged with oncology follow-up recommendations and instructions to return for worsening symptoms. SEPSIS COMPLIANCE: Patient does not meet sepsis criteria Lab Data I reviewed the patient's lab results. 11/12/24 15:53 11/12/24 15:53 Radiology Impressions Chest X-Ray 11/12/24 15:44 IMPRESSION: 1. No acute cardiopulmonary abnormality. Chest CTA 11/12/24 17:13 IMPRESSION: 1. No evidence of PE or acute aortic abnormality. 2. Multiple small pulmonary nodules in both lungs raising the question of metastatic disease or a granulomatous process. Consider oncology evaluation to exclude primary neoplasm. The findings were verbally communicated by telephone with Dr. KUMAR at 6:02 PM CDT on 11/12/2024. Abdomen/Pelvis CT 11/12/24 18:03 IMPRESSION: 1. No evidence of neoplasm in the abdomen or pelvis within limitations of a noncontrast exam. 2. Follow-up CT of the chest in 3 months is recommended to assess for stability of the pulmonary nodules. 3. Wall thickening of the sigmoid colon with very mild haziness in the left hemipelvis, possibly secondary to a recent bout of diverticulitis. Consider correlation with follow-up colonoscopy to exclude an underlying mucosal lesion. References: Doris H, et al. Guidelines for Management of Incidental Pulmonary Nodules Detected on CT Images: From the Fleischner Society 2017. Radiology. 2017;284(1):228-243. Laboratory Results WBC 9.52 10^3/uL (3.29-11.43) 11/12/24 15:53 RBC 4.67 10^6/uL (3.85-5.65) 11/12/24 15:53 Hgb 12.20 g/dL (11.27-16.99) 11/12/24 15:53 Hct 38.8 % (36-47) 11/12/24 15:53 MCV 83.1 fl (85-98) L 11/12/24 15:53 MCH 26.1 pg (27-33) L 11/12/24 15:53 MCHC 31.4 g/dL (30-55) 11/12/24 15:53 RDW 14.8 % (12.1-15.1) 11/12/24 15:53 Plt Count 158 10^3/cmm (157-399) 11/12/24 15:53 MPV 10.4 fL (7.4-10.4) 11/12/24 15:53 Neut % (Auto) 71.9 % 11/12/24 15:53 Lymph % (Auto) 15.9 % 11/12/24 15:53 Crook % (Auto) 6.3 % 11/12/24 15:53 Eos % (Auto) 4.9 % 11/12/24 15:53 Baso % (Auto) 0.7 % 11/12/24 15:53 Neut # (Auto) 6.84 10^3/uL (1.8-7.7) 11/12/24 15:53 Lymph # (Auto) 1.5 10^3/uL (0.8-4.8) 11/12/24 15:53 Crook # (Auto) 0.6 10^3/uL (0.2-0.9) 11/12/24 15:53 Eos # (Auto) 0.5 10^3/uL (0.0-0.8) 11/12/24 15:53 Baso # (Auto) 0.1 10^3/uL (0.0-0.1) 11/12/24 15:53 Nucleated RBC % (auto) 0 % 11/12/24 15:53 Nucleated RBCs # 0.0 /100WBC 11/12/24 15:53 Sodium 137 mmol/L (136-145) 11/12/24 15:53 Potassium 4.3 mmol/L (3.5-5.1) 11/12/24 15:53 Chloride 102 mmol/L (98-107) 11/12/24 15:53 Carbon Dioxide 22 mmol/L (22-29) 11/12/24 15:53 Anion Gap 17.3 (5-19) 11/12/24 15:53 BUN 22 mg/dL (6-20) H 11/12/24 15:53 Creatinine 0.8 mg/dL (0.5-0.9) 11/12/24 15:53 GFR Calculation 75.3 mL/min (90-130) L 11/12/24 15:53 Glucose 191 mg/dL (65-115) H 11/12/24 15:53 Calculated Osmolality 292 mOsm/kg (285-295) 11/12/24 15:53 Calcium 9.8 mg/dL (8.5-10.5) 11/12/24 15:53 Total Bilirubin 0.3 mg/dL (0.15-1.2) 11/12/24 15:53 AST 18 U/L (0-32) 11/12/24 15:53 ALT 21 U/L (0-33) 11/12/24 15:53 Alkaline Phosphatase 60 U/L (35-105) 11/12/24 15:53 Troponin T Baseline 9 ng/L (0-10) 11/12/24 15:53 Troponin T 120 Minute 9.27 ng/L (0-10) 11/12/24 17:54 Delta Troponin T 0.27 ABS# (0-10) 11/12/24 17:54 Total Protein 8.0 g/dL (6.6-8.7) 11/12/24 15:53 Albumin 4.4 g/dL (3.5-5.2) 11/12/24 15:53 Globulin 3.6 g/dL (1.3-4.6) 11/12/24 15:53 All radiology interpretation(s) finalized by discharge Discharge Plan Discharge Patient Disposition: Home Clinical Impression: Atypical chest pain, Lung nodules Condition: Stable Prescriptions: No Action atorvastatin 40 mg tablet 40 mg PO QPM tizanidine 4 mg tablet 4 mg PO TID PRN (Reason: muscle spasms) metoprolol succinate 50 mg tablet extended release 24 hr 50 mg PO DAILY sucralfate 100 mg/mL suspension 10 ml PO QID clopidogrel 75 mg tablet 75 mg PO DAILY amlodipine 5 mg tablet 5 mg PO DAILY isosorbide mononitrate 60 mg tablet extended release 24 hr 60 mg PO DAILY pantoprazole 40 mg tablet,delayed release (DR/EC) 40 mg PO DAILY gabapentin 300 mg capsule 600 mg PO TID oxycodone-acetaminophen 7.5-325 mg tablet 1 tab PO TID Novolin R FlexPen 100 unit/mL (3 mL) insulin pen See Rx Instructions .ROUTE .COMPLEX Rx Instructions: Inject subcutaneously per sliding scale tid. pregabalin 200 mg capsule 200 mg PO QID insulin degludec [Tresiba FlexTouch U-100] 100 unit/mL (3 mL) insulin pen 70 unit SUBCUT DAILY Ozempic 1 mg/dose (4 mg/3 mL) pen injector 1 mg SUBCUT Q7D Discharge Orders: Discharge ED (Routine); Ordered 11/12/24 Ordered By: Venkat Kumar Discharge Diet: Diabetic Discharge Activity: Increase activity as tolerated Patient Instructions: Chest Pain (ED), Opioid Safety, Pain Management Activity Restrictions/Additional Instructions: DISCHARGE INSTRUCTIONS: You have been evaluated for chest pain and your cardiac workup is reassuring without evidence of heart attack or blood clots. However, we found some small nodules in your lungs that require follow-up. Please schedule appointments with your primary care physician and an oncologist within the next week to discuss these findings. A repeat CT scan of your chest is recommended in 3 months. Return to the Emergency Department immediately for: - Severe or worsening chest pain - Difficulty breathing - Dizziness or passing out - Any other concerning symptoms Print Language: Pashto Coding Level of Care Code ED Hooker Operator for Levi Sweet
[2024-11-12 19:38] VITALS: BP 152/86; PULSE 90; RESP 18; O2SAT 97
== END 2024-11-12 19:39 | disposition home or self-care (01) ==
PROVIDERS: Physician Assistant; Emergency Provider Student in an Organized Health Care Education/Training Program
DX: R07.89 Other chest pain (principal); R91.1 Solitary pulmonary nodule; Z79.02 Long term (current) use of antithrombotics/antiplatelets; Z79.4 Long term (current) use of insulin; Z95.0 Presence of cardiac pacemaker
CPT/HCPCS: 36415; 71045; 71275; 74176; 80053; 84484; 85025; 93005; 96374; 99285; J2270

== ENCOUNTER → 2025-04-19 14:30 | Outpatient (BNVA) | payer MEDICARE, SELFPAY | PROVIDERS: Visit Provider Emergency Medicine | DX: B34.9 Viral infection, unspecified (principal) | CPT/HCPCS: 87400; 87426 ==